=== PATIENT | female | born 1930 | race Caucasian/White ===

== ENCOUNTER → 2016-07-07 | Outpatient (CLI) | payer OTHER, MEDICARE ==
[~2016-07-07] MED LIST: ASPIRIN 32325 MG/TA1 PO; CALCIUM 500500 M1 PO; CALTRATE-600 W600 MG PO; FEMARA PO; FOSAMAX 70MG TA70 MG PO; FOSAMAX5 MG; KEPPRA 500MG500 MG PO; KEPPRA250 MG PO; LASIX 20MG TABL20 MG PO; NORCO 325 MG-51 TAB PO; SENOKOT S 50 MG1 TAB PO; THERMOTABS 2871 TA1 PO; VITAMIN C500 MG PO; VITAMIN D 400400 IU PO; ZINC SULFATE220 M2 PO
[2016-07-07 21:35] LABS: CALCIUM 9.4 mg/dL (8.4-10.2); CREATININE, serum 0.65 mg/dL (0.52-1.25); POTASSIUM 4.9 mmol/L (3.4-5.0)
== END ==
LOC: ZCOL.LAB 19:25
PROVIDERS: Internal Medicine
DX: E87.1 Hypo-osmolality and hyponatremia (principal)

== ENCOUNTER → 2016-07-24 | Outpatient (CLI) | payer OTHER | LOC: COL.RAD 09:31 | DX: S72.092D Other fracture of head and neck of left femur, subsequent encounter for closed fracture with routine healing (principal); X58.XXXD Exposure to other specified factors, subsequent encounter; M17.0 Bilateral primary osteoarthritis of knee; M25.562 Pain in left knee ==

== ENCOUNTER → 2016-07-25 | Outpatient (CLI) | payer OTHER ==
[2016-07-25 12:42] LABS: CALCIUM 9.5 mg/dL (8.4-10.2); CREATININE, serum 0.62 mg/dL (0.52-1.25); POTASSIUM 4.4 mmol/L (3.4-5.0)
== END ==
LOC: ZCOL.LAB 11:43
PROVIDERS: Internal Medicine Nephrology
DX: E87.1 Hypo-osmolality and hyponatremia (principal)

== ENCOUNTER → 2016-10-17 | Outpatient (CLI) | payer OTHER | LOC: COL.RAD 09:49 | DX: S72.092D Other fracture of head and neck of left femur, subsequent encounter for closed fracture with routine healing (principal); Z98.890 Other specified postprocedural states ==

== ENCOUNTER → 2016-12-15 | Outpatient (CLI) | payer OTHER | LOC: MC.RAD 12:49 | DX: Z12.31 Encounter for screening mammogram for malignant neoplasm of breast (principal); Z85.3 Personal history of malignant neoplasm of breast; Z90.11 Acquired absence of right breast and nipple ==

== ENCOUNTER 2016-12-27 20:33 | Inpatient (IN) | payer OTHER, MEDICARE ==
[2016-12-27] VITALS (32 sets, daily range): BP systolic 126; BP diastolic 79; PULSE 85; TEMP 96.8; O2SAT 95–100
[~2016-12-27] VITALS: Ht 162.6 cm; Wt 65.3 kg
[~2016-12-27 20:33] MED LIST changes: -KEPPRA 500MG500 MG PO; -KEPPRA250 MG PO; -SENOKOT S 50 MG1 TAB PO; -VITAMIN C500 MG PO; -ZINC SULFATE220 M2 PO
[2016-12-27 21:24] LABS: BASO % 0.4 % (0.0-2.0); EOS # 0.1 (0.0-0.7); EOS % 0.8 % (0-4.0); GRAN # 5.1 (1.4-6.5); GRAN % 72.6 % (42.2-75.2); HEMATOCRIT 37.8 % (37.0-47.0); LYMPH # 1.2 (1.2-3.4); LYMPH % 17.3 % (20.0-51.0); MEAN CELL VOLUME 85 fl (80.0-100.0); MEAN CORPUSCULAR HEMOGLOBIN 29 pg (27.0-31.0); MEAN CORPUSCULAR HGB CONC 34 g/dl (33.0-37.0); MONO # 0.6 (0.1-0.6); MONO % 8.6 % (1.7-9.3); PLATELET COUNT 344 K/mm3 (130-400); RED BLOOD COUNT 4.46 M/mm3 (4.10-5.30); REDCELL DISTRIBUTION WIDTH-CV 14.1 % (11.5-14.5); WHITE BLOOD COUNT 7.1 K/mm3 (4.8-10.8)
[2016-12-27 21:30] LABS: PROTHROMBIN TIME 11.6 SECONDS (9.7-12.8)
[2016-12-27 21:35] LABS: ADJUSTED CALCIUM 9.9 mg/dL (8.4-10.2); ALBUMIN 3.8 gm/dL (3.5-5.0); BILIRUBIN,TOTAL 0.7 mg/dL (0.0-1.0); C-REACTIVE PROTEIN 1.1 mg/dL (0.0-0.9); CALCIUM 9.7 mg/dL (8.4-10.2); CREATININE, serum 0.65 mg/dL (0.52-1.25); MAGNESIUM 1.6 mg/dL (1.6-2.3); POTASSIUM 3.4 mmol/L (3.4-5.0)
[2016-12-27] MEDS ORDERED: SENOKOT S 50 MG1 TAB PO ×2 (21:43→21:49)
[2016-12-27] MEDS ORDERED: FOSAMAX 70MG TA70 MG PO (21:45)
[2016-12-27] MEDS ORDERED: ZINC SULFATE220 M2 PO (21:46)
[2016-12-27] MEDS ORDERED: VITAMIN C500 MG PO (21:46)
[2016-12-27 22:41] LABS: PH 5 (5-8); SQUAMOUS EPITHELIAL None Seen /hpf; URINE APPEARANCE Clear; URINE BACTERIA None Seen /hpf; URINE BILIRUBIN Negative (NEGATIVE); URINE BLOOD Negative (NEGATIVE); URINE COLOR Yellow; URINE GLUCOSE Negative (NEGATIVE); URINE KETONE Negative (NEGATIVE); URINE RBC 0-2 /hpf; URINE UROBILINOGEN Negative (NEGATIVE); URINE WBC 0-2 /hpf
[2016-12-28] VITALS (710 sets, daily range): BP systolic 90–142; BP diastolic 44–79; PULSE 60–81; TEMP 96.8–98.1; O2SAT 61–100
[2016-12-28 00:29] LABS: PHOSPHOROUS 4.7 mg/dL (2.5-4.5)
[2016-12-28 06:02] LABS: BASO # 0.1 (0.0-0.2); BASO % 0.8 % (0.0-2.0); EOS # 0.1 (0.0-0.7); EOS % 1.5 % (0-4.0); GRAN # 4.1 (1.4-6.5); GRAN % 66.8 % (42.2-75.2); HEMATOCRIT 38.4 % (37.0-47.0); HEMOGLOBIN 13.1 g/dl (12.5-16.0); LYMPH # 1.2 (1.2-3.4); LYMPH % 20.2 % (20.0-51.0); MEAN CELL VOLUME 84 fl (80.0-100.0); MEAN CORPUSCULAR HEMOGLOBIN 29 pg (27.0-31.0); MEAN CORPUSCULAR HGB CONC 34 g/dl (33.0-37.0); MEAN PLATELET VOLUME 10.3 fl (7.4-10.4); MONO # 0.6 (0.1-0.6); MONO % 10.4 % (1.7-9.3); PLATELET COUNT 314 K/mm3 (130-400); RED BLOOD COUNT 4.56 M/mm3 (4.10-5.30); REDCELL DISTRIBUTION WIDTH-CV 13.9 % (11.5-14.5); WHITE BLOOD COUNT 6.1 K/mm3 (4.8-10.8)
[2016-12-28 06:17] LABS: ADJUSTED CALCIUM 9.6 mg/dL (8.4-10.2); ALBUMIN 3.7 gm/dL (3.5-5.0); BILIRUBIN,TOTAL 0.7 mg/dL (0.0-1.0); CALCIUM 9.4 mg/dL (8.4-10.2); CREATININE, serum 0.52 mg/dL (0.52-1.25); MAGNESIUM 1.7 mg/dL (1.6-2.3); PHOSPHOROUS 4.8 mg/dL (2.5-4.5); POTASSIUM 3.8 mmol/L (3.4-5.0); TOTAL PROTEIN 6.8 gm/dL (6.4-8.2)
[2016-12-29 03:55] VITALS: BP 112/60; PULSE 73; TEMP 97.9
[2016-12-29 07:19] LABS: ALBUMIN 3.2 gm/dL (3.5-5.0); CALCIUM 8.7 mg/dL (8.4-10.2); CREATININE, serum 0.53 mg/dL (0.52-1.25); PHOSPHOROUS 4.2 mg/dL (2.5-4.5); POTASSIUM 3.7 mmol/L (3.4-5.0)
[2016-12-29 07:51] VITALS: BP 106/55; PULSE 67; TEMP 97.3
[2016-12-29 11:23] VITALS: BP 130/59; PULSE 78; TEMP 97.4
[2016-12-29 15:14] VITALS: BP 122/48; PULSE 98; TEMP 97.5
[2016-12-29 19:49] VITALS: BP 130/52; PULSE 88; TEMP 97.3
[2016-12-29 22:56] VITALS: BP 115/52; PULSE 78; TEMP 97.3
[2016-12-30 03:19] VITALS: BP 138/58; PULSE 71; TEMP 97.3
[2016-12-30 07:21] VITALS: BP 130/66; PULSE 71; TEMP 97.3
[2016-12-30 07:51] LABS: BASO % 0.7 % (0.0-2.0); EOS # 0.1 (0.0-0.7); EOS % 1.9 % (0-4.0); GRAN % 68.6 % (42.2-75.2); HEMOGLOBIN 12.1 g/dl (12.5-16.0); LYMPH # 1.1 (1.2-3.4); LYMPH % 18.8 % (20.0-51.0); MEAN CELL VOLUME 85 fl (80.0-100.0); MEAN CORPUSCULAR HEMOGLOBIN 30 pg (27.0-31.0); MEAN CORPUSCULAR HGB CONC 35 g/dl (33.0-37.0); MEAN PLATELET VOLUME 10.5 fl (7.4-10.4); MONO # 0.6 (0.1-0.6); MONO % 9.5 % (1.7-9.3); PLATELET COUNT 296 K/mm3 (130-400); RED BLOOD COUNT 4.06 M/mm3 (4.10-5.30); REDCELL DISTRIBUTION WIDTH-CV 14.1 % (11.5-14.5); WHITE BLOOD COUNT 5.8 K/mm3 (4.8-10.8)
[2016-12-30 07:54] LABS: HEMATOCRIT 34.6 % (37.0-47.0)
[2016-12-30 07:58] LABS: ALBUMIN 3.2 gm/dL (3.5-5.0); CALCIUM 8.9 mg/dL (8.4-10.2); CREATININE, serum 0.53 mg/dL (0.52-1.25); POTASSIUM 3.6 mmol/L (3.4-5.0)
[2016-12-30] MEDS ORDERED: KEPPRA 500MG500 MG PO ×2 (08:03→09:53)
[2016-12-30 08:09] LABS: PHOSPHOROUS 3.9 mg/dL (2.5-4.5)
[2016-12-30] MEDS ORDERED: KEPPRA250 MG PO (09:53)
== END 2016-12-30 10:15 | disposition home or self-care (01) | DRG 101 ==
LOC: COL.ER 20:33 → ICU 22:23 → MEDICAL 12-28 14:46
PROVIDERS: Emergency Medicine; Internal Medicine; Internal Medicine Nephrology; Nurse Practitioner Family; Physician Assistant
DX: R56.9 Unspecified convulsions (principal); E87.1 Hypo-osmolality and hyponatremia; E44.0 Moderate protein-calorie malnutrition; I35.0 Nonrheumatic aortic (valve) stenosis; Z85.3 Personal history of malignant neoplasm of breast; M81.0 Age-related osteoporosis without current pathological fracture
CPT/HCPCS: 99223-AI; 99232-AI; 99239; A9585; G0378; J7030

== ENCOUNTER → 2017-01-06 | Outpatient (CLI) | payer MEDICARE ==
[~2017-01-06] MED LIST changes: +KEPPRA 500MG500 MG PO; +KEPPRA250 MG PO; +SENOKOT S 50 MG1 TAB PO; +VITAMIN C500 MG PO; +ZINC SULFATE220 M2 PO
[2017-01-06 14:19] LABS: CALCIUM 9.5 mg/dL (8.4-10.2); CREATININE, serum 0.75 mg/dL (0.52-1.25); POTASSIUM 4.4 mmol/L (3.4-5.0)
== END ==
LOC: ZLAB.WCH 13:54 → EDSTATUS 14:42 → ZCOL.LAB 14:47 → EDSTATUS 14:47 → ZCOL.LAB 14:50
PROVIDERS: Internal Medicine
DX: L56.9 Acute skin change due to ultraviolet radiation, unspecified (principal)

== ENCOUNTER → 2018-01-26 | Outpatient (CLI) | payer MEDICARE | LOC: MC.RAD 12-16 10:00 | DX: Z12.31 Encounter for screening mammogram for malignant neoplasm of breast (principal); Z85.3 Personal history of malignant neoplasm of breast; Z90.11 Acquired absence of right breast and nipple ==

== ENCOUNTER 2018-09-26 07:43 | Emergency (ER) | payer MEDICARE, OTHER ==
[~2018-09-26] VITALS: Ht 162.6 cm; Wt 54.5 kg
[2018-09-26 07:55] VITALS: TEMP 98
[2018-09-26 08:16] LABS: HEMATOCRIT 45.1 % (37.0-47.0); HEMOGLOBIN 14.7 g/dl (12.5-16.0); MEAN CELL VOLUME 90 fl (80.0-100.0); MEAN CORPUSCULAR HEMOGLOBIN 29 pg (27.0-31.0); MEAN CORPUSCULAR HGB CONC 33 g/dl (33.0-37.0); MEAN PLATELET VOLUME 10.9 fl (7.4-10.4); PLATELET COUNT 360 K/mm3 (130-400); RED BLOOD COUNT 5.02 M/mm3 (4.10-5.30); REDCELL DISTRIBUTION WIDTH-CV 13.8 % (11.5-14.5)
[2018-09-26 08:26] LABS: ALBUMIN 4.8 gm/dL (3.5-5.0); BILIRUBIN,TOTAL 0.7 mg/dL (0.0-1.0); C-REACTIVE PROTEIN 0.9 mg/dL (0.0-0.9); CALCIUM 9.4 mg/dL (8.4-10.2); CREATININE, serum 0.72 mg/dL (0.52-1.25); TOTAL PROTEIN 9.1 gm/dL (6.4-8.2)
[2018-09-26 09:15] LABS: BAND 12 % (0-10); LYMPHOCYTE 3 % (20.0-51.0); NEUTROPHILS 81 % (42.0-75.2)
[2018-09-26 09:25] LABS: COLLECTION METHOD CLEAN CATCH
[2018-09-26 09:37] LABS: MUCOUS Present /lpf; PH 5 (5-8); URINE APPEARANCE Hazy; URINE BACTERIA None Seen /hpf; URINE BILIRUBIN Negative (NEGATIVE); URINE BLOOD Negative (NEGATIVE); URINE COLOR Yellow; URINE GLUCOSE Negative (NEGATIVE); URINE KETONE Trace (NEGATIVE); URINE LEUKOCYTE ESTERASE Trace (NEGATIVE); URINE NITRATE Negative (NEGATIVE); URINE PROTEIN(semi-quant) Negative (NEGATIVE); URINE UROBILINOGEN Negative (NEGATIVE)
[2018-09-26] MEDS ORDERED: CEPHALEXIN500 M1 PO (09:47)
[2018-09-26] MEDS ORDERED: ZOFRAN ODT4 MG PO (09:47)
[2018-09-26 09:57] VITALS: BP 99/44; PULSE 101
== END 2018-09-26 10:15 | disposition home or self-care (01) ==
LOC: COL.ER 07:43
PROVIDERS: Physician Assistant
DX: N39.0 Urinary tract infection, site not specified (principal); R11.10 Vomiting, unspecified; Z85.3 Personal history of malignant neoplasm of breast; Z98.890 Other specified postprocedural states
CPT/HCPCS: J2405; J7040

== ENCOUNTER → 2019-01-27 | Outpatient (CLI) | payer MEDICARE, OTHER ==
[~2019-01-27] MED LIST changes: +CEPHALEXIN500 M1 PO; +ZOFRAN ODT4 MG PO
== END ==
LOC: MC.RAD 08:57
DX: Z12.31 Encounter for screening mammogram for malignant neoplasm of breast (principal); Z90.11 Acquired absence of right breast and nipple; Z85.3 Personal history of malignant neoplasm of breast

== ENCOUNTER → 2020-07-30 | Outpatient (CLI) | payer MEDICARE, OTHER | LOC: COL.VAS 12:13 | DX: R60.0 Localized edema (principal) ==

== ENCOUNTER → 2021-06-11 | Outpatient (CLI) | payer MEDICARE, OTHER ==
[2021-06-11 13:15] LABS: COLLECTION METHOD CLEAN CATCH
[2021-06-11 14:05] LABS: AMORPHOUS CRYSTAL Present (NOT PRESENT); MUCOUS Present (NOT PRESENT); PH 5 (5-8); SQUAMOUS EPITHELIAL 0-2 /hpf (0-10); URINE APPEARANCE Turbid (CLEAR/HAZY); URINE BACTERIA Many (NONE SEEN); URINE BILIRUBIN Negative (NEGATIVE); URINE BLOOD 2+ (NEGATIVE); URINE COLOR Amber (YELLOW); URINE GLUCOSE Negative (NEGATIVE); URINE KETONE Negative (NEGATIVE); URINE LEUKOCYTE ESTERASE 2+ (NEGATIVE); URINE NITRATE Negative (NEGATIVE); URINE PROTEIN(semi-quant) 1+ (NEGATIVE); URINE UROBILINOGEN Negative (NEGATIVE); URINE WBC 20-50 /hpf (0-2)
== END ==
LOC: ZCOL.LAB 12:56
PROVIDERS: Internal Medicine
DX: N39.0 Urinary tract infection, site not specified (principal); Z01.89 Encounter for other specified special examinations

== ENCOUNTER → 2021-06-12 | Outpatient (CLI) | payer MEDICARE, OTHER ==
[2021-06-12 13:29] LABS: CREATININE, serum 1.25 mg/dL (0.57-1.11); POTASSIUM 4.6 mmol/L (3.5-4.5)
== END ==
LOC: ZCOL.LAB 12:44
PROVIDERS: Internal Medicine
DX: E44.0 Moderate protein-calorie malnutrition (principal)